=== PATIENT | female | born 1935 | race Caucasian/White ===

== ENCOUNTER 2022-08-24 12:18 | Inpatient (IN) | payer MEDICARE, BC ==
[~2022-08-24] VITALS: Ht 160 cm; Wt 45.3 kg
[~2022-08-24 12:18] MED LIST: ALPR0.255 PO; AMLO5TAB96 PO; CYCL-1 PO; DILT120C62 PO; FOSI20TA97 PO; HYDR25TA4 PO; LEVO100T9 PO; MELO-100 PO; PRAV20TA4 PO; RIVA20TA PO
[2022-08-24 14:35] LABS: BASOPHILS % (AUTO) 0.2 % (0-1); EOSINOPHILS % (AUTO) 0.1 % (0-6); HEMOGLOBIN 11.2 g/dl (12.0-16.0); LYMPHOCYTES # (AUTO) 1.1 X10'3 (1.1-4.8); LYMPHOCYTES % (AUTO) 9.9 % (21-51); MEAN CORPUSCULAR VOLUME 90.9 FL (78-98); MEAN PLATELET VOLUME 7.6 FL (7.4-10.4); MONOCYTES # (AUTO) 0.9 X10'3 (0-0.9); MONOCYTES % (AUTO) 8.2 % (2-12); NEUTROPHILS # (AUTO) 9.3 X10'3 (1.8-7.7); NEUTROPHILS % (AUTO) 81.6 % (42-75); PLATELET COUNT 212 X10'3 (140-440); RED BLOOD COUNT 3.74 X10'6 (4.20-5.60); RED CELL DISTRIBUTION WIDTH 15.7 % (11.5-14.5); WHITE BLOOD COUNT 11.4 X10'3 (4.5-11.0)
[2022-08-24 14:45] LABS: APTT 38 SECONDS (22-32)
[2022-08-24 14:54] LABS: ALANINE AMINOTRANSFERASE 20 U/L (12-78); ALBUMIN 3.4 G/DL (3.4-5.0); ALKALINE PHOSPHATASE 79 IU/L (46-116); ANION GAP 10 (8-16); ASPARTATE AMINO TRANSFERASE 63 U/L (10-37); BILIRUBIN,TOTAL 0.8 MG/DL (0.1-1.0); BLOOD UREA NITROGEN 27 MG/DL (7-18); BUN/CREATININE RATIO 16.9 (6.6-38.0); CALCIUM 9.3 MG/DL (8.5-10.1); CHLORIDE 109 MMOL/L (99-107); GLUCOSE 108 MG/DL (70-104); POTASSIUM 3.8 MMOL/L (3.5-5.1); SODIUM 145 MMOL/L (135-145); TOTAL CARBON DIOXIDE 25.9 MMOL/L (24-32); TOTAL PROTEIN 6.8 G/DL (6.4-8.2); eGFR 31 ML/MIN
[2022-08-24 15:04] LABS: ETHANOL < 0.010 GM/DL (0.0-0.010)
[2022-08-24 15:06] LABS: CREATINE KINASE 1445 U/L (26-192)
[2022-08-24] MEDS ORDERED: normal saline 1000ml 1,000 ML IV ONE (15:15)
[2022-08-24 15:22] LABS: CLARITY,URINE SLIGHTLY CLOUDY (Clear); COLOR,URINE YELLOW (Yellow); GLUCOSE, URINE NEGATIVE (Neg); KETONES,URINE NEGATIVE (Neg); LEUKOCYTE ESTERASE ,URINE NEGATIVE (Neg); NITRITES, URINE POSITIVE (Neg); OCCULT BLOOD,URINE LARGE (Neg); PH,URINE 5.5 (4.8-8.0); PROTEIN,URINE 30 mg/dl (Neg); UROBILINOGEN,URINE 0.2 E.U/dL (0.2-1.0)
[2022-08-24 15:29] LABS: UA COLLECTION TYPE FOLEY CATH
[2022-08-24 15:30] LABS: BACTERIA,URINE 4+ /HPF (Neg); MUCUS STRANDS NONE SEEN /LPF (Neg); RBC,URINE 0-2 /HPF (0-2); SQUAMOUS EPITHELIAL CELL,UR FEW /LPF (FEW); WBC CLUMPS,URINE FEW /HPF (NEGATIVE)
[2022-08-24] MEDS ORDERED: acetaminophen 1,000mg/100ml IV 100 ML IV SCH (15:32)
[2022-08-24] MEDS ORDERED: CefTRIAXone/D5W-Rocephin 1gm 50 ML IV ONE (15:35)
[2022-08-24 15:36] LABS: URINE AMPHETAMINE SCREEN NEGATIVE (Neg); URINE BARBITUATE SCREEN NEGATIVE (Neg); URINE BENZODIAZEPINES SCREEN NEGATIVE (Neg); URINE CANNABINOID SCREEN NEGATIVE (Neg); URINE COCAINE SCREEN NEGATIVE (Neg); URINE METHADONE SCREEN NEGATIVE (Neg); URINE OPIATE SCREEN NEGATIVE (Neg); URINE PHENCYCLIDINE SCREEN NEGATIVE (Neg)
[2022-08-24] MEDS ORDERED: acetaminophen 1,000mg/100ml IV 100 ML IV ONE (15:37)
--- NOTE | 2022-08-24 15:43 | NUR ---
pt is allergic to penicillin and has rocephin ordered, pharmacy is questioning the order. the provider is aware and is ok with the medication.
[2022-08-24] MEDS ORDERED: LORazepam 2 mg/ml vial IV ONE ×2 (16:20→17:15)
[2022-08-24] MEDS ORDERED: levetiracetam inj 1,500 MG in normal saline 100ml IV soln 85 ML IV ONE (16:30)
[2022-08-24] MEDS ORDERED: levetiracetam inj 500 MG in normal saline 100ml IV soln 95 ML IV ONE (16:30)
[2022-08-24] MEDS ORDERED: levetiracetam inj 1,500 MG in normal saline 100ml IV soln 100 ML IV ONE (16:39)
--- NOTE | 2022-08-24 17:27 | NUR ---
EEG COMPLETE. LAB AT BEDSIDE
[2022-08-24] MEDS ORDERED: acetaminophen 325mg tablet PO PRN ×2 (18:10)
[2022-08-24] MEDS ORDERED: magnesium hydroxide 30ml (MOM) UD suspension PO PRN (18:10)
[2022-08-24] MEDS ORDERED: mag hydrox/Alum hydrox/simeth 30ml oral suspension PO PRN (18:10)
[2022-08-24] MEDS ORDERED: ondansetron/PF 4mg/2ml inj IV PRN (18:10)
[2022-08-24] MEDS ORDERED: morphine 2 MG/ML inj. syringe IV PRN (18:10)
--- NOTE | 2022-08-24 18:47 | NUR ---
pt altered not able to follow commands. swallow test not able to be performed r/t pt safety.
[2022-08-24] MEDS: normal saline 1000ml 1,000 ML IV SCH (19:00)
[2022-08-24] MEDS ORDERED: DONE-46 PO (19:55)
[2022-08-24] MEDS ORDERED: WARF-55 PO (19:55)
[2022-08-24] MEDS ORDERED: ATOR40TA72 PO (19:55)
[2022-08-24] MEDS ORDERED: FURO20TA4 PO (19:55)
[2022-08-24] MEDS ORDERED: docusate sod 100mg capsule PO SCH (20:00)
[2022-08-24] MEDS ORDERED: levetiracetam 250mg tablet PO SCH (20:00)
[2022-08-24] MEDS ORDERED: levetiracetam inj 500 MG in normal saline 100ml IV soln 95 ML IV SCH (20:00)
[2022-08-24] MEDS: levetiracetam inj 500 MG in normal saline 100ml IV soln 100 ML IV SCH (20:14)
--- NOTE | 2022-08-25 01:00 | NUR ---
PT HR SUSTAINING 170 TO 180. CALLED. ORDER FOR CARDIZEM DRIP AT 5/HR RECIEVED.
[2022-08-25] MEDS ORDERED: niCARDipine-NS 40mg/200ml IVPB 200 ML IV SCH ×2 (01:10)
[2022-08-25] MEDS: diltiazem-NS 100mg/100ml 100 ML IV SCH ×3 (01:20→23:13)
--- NOTE | 2022-08-25 01:48 | NUR ---
HR STILL MAINTAINING 170-180. MD AWARE. ORDER RECIEVED TO TITRATE DRIP UP TO 15 NEEDED.
--- NOTE | 2022-08-25 02:49 | NUR ---
CALLED MD R/T HR STILL MAINTAING 170-180 ON 15/HR CARDIZEM. MD AWARE. MD ORDERED NO FURTHER TITRATION ON MED.
[2022-08-25] MEDS: normal saline 1000ml 1,000 ML IV SCH ×2 (04:06→16:45)
--- NOTE | 2022-08-25 04:38 | NUR ---
SPOKE WITH MD REGARDING HR STILL IN 170S. RECIEVED ORDER FOR 5MG METOPROLOL PUSH. IF SYSTOLIC MAINTAINS ABOVE 120 ANOTHER PUSH MAY BE GIVEN.
[2022-08-25] MEDS ORDERED: metoprolol tartrate 1mg/ml inj IV ONE (04:40)
[2022-08-25] MEDS ORDERED: acetaminophen 650mg rectal suppository RC ONE (05:35)
[2022-08-25 07:25] LABS: BASOPHILS % (AUTO) 0.3 % (0-1); EOSINOPHILS % (AUTO) 0.2 % (0-6); HEMATOCRIT 34.5 % (35.0-45.0); HEMOGLOBIN 11.2 g/dl (12.0-16.0); LYMPHOCYTES # (AUTO) 1.3 X10'3 (1.1-4.8); LYMPHOCYTES % (AUTO) 11.4 % (21-51); MEAN CORPUSCULAR HGB CONC 32.6 g/dL (33.0-36.5); MEAN CORPUSCULAR VOLUME 92.2 FL (78-98); MONOCYTES # (AUTO) 1.2 X10'3 (0-0.9); MONOCYTES % (AUTO) 10.4 % (2-12); NEUTROPHILS # (AUTO) 9.1 X10'3 (1.8-7.7); NEUTROPHILS % (AUTO) 77.7 % (42-75); PLATELET COUNT 225 X10'3 (140-440); RED BLOOD COUNT 3.74 X10'6 (4.20-5.60); RED CELL DISTRIBUTION WIDTH 15.8 % (11.5-14.5); WHITE BLOOD COUNT 11.7 X10'3 (4.5-11.0)
[2022-08-25 07:56] LABS: ANION GAP 10 (8-16); BLOOD UREA NITROGEN 19 MG/DL (7-18); BUN/CREATININE RATIO 16.5 (6.6-38.0); CALCIUM 8.9 MG/DL (8.5-10.1); CHLORIDE 109 MMOL/L (99-107); CREATININE 1.15 MG/DL (0.40-0.90); GLUCOSE 104 MG/DL (70-104); POTASSIUM 4.2 MMOL/L (3.5-5.1); SODIUM 142 MMOL/L (135-145); TOTAL CARBON DIOXIDE 22.6 MMOL/L (24-32); eGFR 45 ML/MIN
[2022-08-25] MEDS: CefTRIAXone/D5W-Rocephin 1gm 50 ML IV SCH (08:12)
[2022-08-25] MEDS: levetiracetam inj 500 MG in normal saline 100ml IV soln 100 ML IV SCH ×2 (08:33→21:31)
[2022-08-25] MEDS: donepezil 5mg tablet PO SCH (10:16)
[2022-08-25] MEDS: atorvastatin 20mg tablet PO SCH (10:16)
[2022-08-25 10:31] LABS: CREATINE KINASE 1230 U/L (26-192)
--- NOTE | 2022-08-25 10:35 | NUR ---
Attempted to call the patient's to go over with the MRI screening form as patient still altered/confuse at this time. I was unable to contact the [facility], the voice message said "the subscriber has not set up a voice mail".
--- NOTE | 2022-08-25 14:28 | NUR ---
Per Dr. Arizmendi, its okay if MRI cannot done today
[2022-08-25 20:54] VITALS: BP 145/78
[2022-08-25] MEDS ORDERED: warfarin 5mg tablet PO ONE (21:00)
[2022-08-25 21:30] VITALS: BP 126/67
[2022-08-25 22:01] VITALS: BP 132/77
[2022-08-25] MEDS: morphine 2 MG/ML inj. syringe IV PRN (22:12)
[2022-08-25 22:30] VITALS: BP 114/80
[2022-08-25 23:00] VITALS: BP 128/66
[2022-08-25 23:30] VITALS: BP 134/67
[2022-08-26] VITALS (12 sets, daily range): BP systolic 112–136; BP diastolic 56–81
[2022-08-26] MEDS: normal saline 1000ml 1,000 ML IV SCH ×3 (00:10→23:57)
[2022-08-26] MEDS ORDERED: morphine 2 MG/ML inj. syringe IV ONE (01:15)
[2022-08-26] MEDS ORDERED: metoprolol tartrate 1mg/ml inj IV ONE (02:20)
[2022-08-26] MEDS: morphine 2 MG/ML inj. syringe IV PRN (02:26)
[2022-08-26 07:01] LABS: BASOPHILS % (AUTO) 0.3 % (0-1); EOSINOPHILS % (AUTO) 0.1 % (0-6); HEMATOCRIT 30.7 % (35.0-45.0); HEMOGLOBIN 10.5 g/dl (12.0-16.0); LYMPHOCYTES # (AUTO) 1.3 X10'3 (1.1-4.8); LYMPHOCYTES % (AUTO) 15.3 % (21-51); MEAN CORPUSCULAR HEMOGLOBIN 30.9 PG (27.0-31.0); MEAN CORPUSCULAR HGB CONC 34.3 g/dL (33.0-36.5); MEAN CORPUSCULAR VOLUME 90.3 FL (78-98); MEAN PLATELET VOLUME 7.8 FL (7.4-10.4); MONOCYTES # (AUTO) 1.2 X10'3 (0-0.9); MONOCYTES % (AUTO) 14.1 % (2-12); NEUTROPHILS # (AUTO) 6.2 X10'3 (1.8-7.7); NEUTROPHILS % (AUTO) 70.2 % (42-75); PLATELET COUNT 200 X10'3 (140-440); RED CELL DISTRIBUTION WIDTH 15.8 % (11.5-14.5); WHITE BLOOD COUNT 8.8 X10'3 (4.5-11.0)
[2022-08-26 07:29] LABS: ALBUMIN 2.5 G/DL (3.4-5.0); ANION GAP 9 (8-16); BLOOD UREA NITROGEN 19 MG/DL (7-18); BUN/CREATININE RATIO 16.1 (10.0-20.0); CALCIUM 8.3 MG/DL (8.5-10.1); CHLORIDE 110 MMOL/L (99-107); CREATININE 1.18 MG/DL (0.40-0.90); GLUCOSE 104 MG/DL (70-104); POTASSIUM 3.5 MMOL/L (3.5-5.1); SODIUM 142 MMOL/L (135-145); eGFR 44 ML/MIN
[2022-08-26] MEDS: levoTHYROXINE 100mcg tablet PO SCH (08:00)
[2022-08-26] MEDS: atorvastatin 20mg tablet PO SCH (08:04)
[2022-08-26] MEDS: donepezil 5mg tablet PO SCH (08:04)
[2022-08-26] MEDS ORDERED: diltiazem CD 180mg cap (once-daily) PO ONE (09:05)
[2022-08-26] MEDS: levetiracetam inj 500 MG in normal saline 100ml IV soln 100 ML IV SCH (10:23)
[2022-08-26] MEDS: CefTRIAXone/D5W-Rocephin 1gm 50 ML IV SCH (11:00)
--- NOTE | 2022-08-26 12:42 | NUR ---
Noted pt BMI 17.7 in EMR pending scaled wt this admit. Pt admit DX new onset seizure s/p fall, ALOC possibly post ictal state, UTI, and mild rhabdomyolysis per EMR. PO 0% first meal AOx1 last night per EMR. Pt on regular diet per RN BSS 08/24 [employer] PROFESSIONAL consult ordered but no order ever placed. JACQUELINE d/w RN who reports pt no issues w/ PO at this time now AOx3. Pt seen by JACQUELINE at bedside visualized meats chopped for ease of PO. Pt reports no trouble chewing/swallowing maintains close watch on wt does not want to gain wt and no wt changes; likely maintain stable underweight status at baseline. Will chop meats for ease of PO-dietary notified. Addendum: 08/26/22 at [address] Amended: Links added.
--- NOTE | 2022-08-26 16:45 | NUR ---
PAGER ID: [phone] MESSAGE: Rashad Llanos. Pt had the MRI. They said they also did a CTA if you wanted that you could put in the order and they can send over the report. Ebony O/Eliza [phone]
--- NOTE | 2022-08-26 18:47 | NUR ---
Problems reprioritized. Patient report given, questions answered & plan of care reviewed with Lorin RN, patient stable at transfer of care.
[2022-08-26] MEDS: levetiracetam 250mg tablet PO SCH (20:14)
[2022-08-26] MEDS ORDERED: warfarin 5mg tablet PO ONE (21:00)
--- NOTE | 2022-08-27 00:49 | NUR ---
Pt. is awake alert oriented x2 self and place needed reorientation to purpose and time. Pt is cooperative able to take po med disssolved in apple sauce. C/O left knee pain crepitus noted with movement and repositioning. Peripheral IV intact NS infusing at 50 ml/hr. Vann with mod amt job clear urine. Temp elevated today 100. 8 HR tachy at 125 afib. Medicated with Tylenol temp decreased to 99.2 HR 106. IV infusing as ordered. 0000 pt. resting comfortably no further c/o pain or fever.
[2022-08-27 02:15] VITALS: BP 120/88
[2022-08-27 06:11] LABS: BASOPHILS % (AUTO) 0.3 % (0-1); EOSINOPHILS # (AUTO) 0.1 X10'3 (0-0.9); EOSINOPHILS % (AUTO) 0.8 % (0-6); HEMATOCRIT 28.8 % (35.0-45.0); HEMOGLOBIN 9.7 g/dl (12.0-16.0); LYMPHOCYTES # (AUTO) 1.4 X10'3 (1.1-4.8); MEAN CORPUSCULAR HEMOGLOBIN 30.7 PG (27.0-31.0); MEAN CORPUSCULAR HGB CONC 33.8 g/dL (33.0-36.5); MEAN CORPUSCULAR VOLUME 90.9 FL (78-98); MEAN PLATELET VOLUME 7.8 FL (7.4-10.4); MONOCYTES # (AUTO) 0.9 X10'3 (0-0.9); NEUTROPHILS # (AUTO) 4.7 X10'3 (1.8-7.7); NEUTROPHILS % (AUTO) 65.9 % (42-75); PLATELET COUNT 185 X10'3 (140-440); RED BLOOD COUNT 3.17 X10'6 (4.20-5.60); RED CELL DISTRIBUTION WIDTH 15.4 % (11.5-14.5); WHITE BLOOD COUNT 7.2 X10'3 (4.5-11.0)
[2022-08-27 06:13] LABS: ALBUMIN 2.1 G/DL (3.4-5.0); ANION GAP 9 (8-16); BLOOD UREA NITROGEN 22 MG/DL (7-18); BUN/CREATININE RATIO 20.4 (10.0-20.0); CALCIUM 8.3 MG/DL (8.5-10.1); CHLORIDE 109 MMOL/L (99-107); CREATININE 1.08 MG/DL (0.40-0.90); GLUCOSE 100 MG/DL (70-104); POTASSIUM 3.4 MMOL/L (3.5-5.1); SODIUM 141 MMOL/L (135-145); TOTAL CARBON DIOXIDE 23.4 MMOL/L (24-32); eGFR 48 ML/MIN
[2022-08-27] MEDS ORDERED: diltiazem CD 180mg cap (once-daily) PO SCH (08:00)
[2022-08-27 08:26] VITALS: BP 134/60
[2022-08-27] MEDS: donepezil 5mg tablet PO SCH (08:31)
[2022-08-27] MEDS: atorvastatin 20mg tablet PO SCH (08:32)
[2022-08-27] MEDS: levoTHYROXINE 100mcg tablet PO SCH (08:32)
[2022-08-27] MEDS: CefTRIAXone/D5W-Rocephin 1gm 50 ML IV SCH (08:32)
[2022-08-27] MEDS: levetiracetam 250mg tablet PO SCH (08:32)
--- NOTE | 2022-08-27 10:11 | NUR ---
Paged Dr. Arizmendi notifying him that 4020A has gay that was placed in ED. No order for it. Asked MD if wanted gay to remain in. This RN not aware of why gay placed. Awaiting reply.
[2022-08-27 11:18] VITALS: BP 121/68
[2022-08-27 14:59] VITALS: BP 127/67
--- NOTE | 2022-08-27 15:59 | NUR ---
Patient discharged to [facility]. RN called report to Gali VALENCIA at [facility]. IV removed with tip intact. Cardiac tele monitor removed and returned to secured entrance monitor. Patient taken off unit by transport in stable condition with all personal belongings at 16:00.
[2022-08-27] MEDS ORDERED: warfarin 5mg tablet PO ONE (21:00)
== END 2022-08-27 16:09 | DRG 100 ==
LOC: ER 12:18 → ED HOLD 18:18 → EDBEDREQ 08-25 18:31 → ORTHO 4S 08-25 20:45
PROVIDERS: ADMIT Internal Medicine; ATTEND Internal Medicine
PROC: 4A00X4Z Measurement of Central Nervous Electrical Activity, External Approach (ICD-10-PCS; principal; 2022-08-24)
DX: R56.9 Unspecified convulsions (principal); R65.11 Systemic inflammatory response syndrome (SIRS) of non-infectious origin with acute organ dysfunction; N17.9 Acute kidney failure, unspecified; M62.82 Rhabdomyolysis; N39.0 Urinary tract infection, site not specified; I13.0 Hypertensive heart and chronic kidney disease with heart failure and stage 1 through stage 4 chronic kidney disease, or unspecified chronic kidney disease; I50.22 Chronic systolic (congestive) heart failure; Z66 Do not resuscitate; E86.0 Dehydration; E78.5 Hyperlipidemia, unspecified; N18.30 Chronic kidney disease, stage 3 unspecified; F03.A0 Unspecified dementia, mild, without behavioral disturbance, psychotic disturbance, mood disturbance, and anxiety; R74.8 Abnormal levels of other serum enzymes; G93.89 Other specified disorders of brain; W18.39XA Other fall on same level, initial encounter; R77.8 Other specified abnormalities of plasma proteins; E03.9 Hypothyroidism, unspecified; K83.8 Other specified diseases of biliary tract; B96.20 Unspecified Escherichia coli [E. coli] as the cause of diseases classified elsewhere; I48.0 Paroxysmal atrial fibrillation; J44.9 Chronic obstructive pulmonary disease, unspecified; M85.80 Other specified disorders of bone density and structure, unspecified site; Z79.01 Long term (current) use of anticoagulants; Z79.899 Other long term (current) drug therapy; Z86.73 Personal history of transient ischemic attack (TIA), and cerebral infarction without residual deficits; Z88.0 Allergy status to penicillin; Z90.710 Acquired absence of both cervix and uterus; Z98.1 Arthrodesis status; Z88.8 Allergy status to other drugs, medicaments and biological substances; Y93.89 Activity, other specified; Y92.098 Other place in other non-institutional residence as the place of occurrence of the external cause; Y99.8 Other external cause status
CPT/HCPCS: 36415; 70450; 70486; 70551; 71045; 71250; 72125; 73560; 73700; 74176; 80048; 80053; 80305; 80320; 81001; 82550; 83880; 84145; 84443; 84484; 85025; 85610; 85730; 86885; 86900; 86901; 87077; 87081; 87088; 87186; 93306; 95816; 97110; 97161; 97530; 99285; A4615; A5200; G0378; J0131; J0696; J1953; J2060; J2270; J3490; J7030; J7040